=== PATIENT | female | born 1930 | race Caucasian/White ===

== ENCOUNTER → 2017-09-18 | Outpatient (CLI) | payer MEDICARE ==
[~2017-09-18] MED LIST: ALEVE220 MG PO; ASPIRIN81 M2 PO; CALTRATE 600600 MG PO; FISH OIL300 MG PO; HYDROCHLOROTHIA25 MG PO; NORVASC5 MG PO
== END | disposition home or self-care (01) ==
LOC: CDC 09:20
DX: Z01.810 Encounter for preprocedural cardiovascular examination (principal); R94.31 Abnormal electrocardiogram [ECG] [EKG]
CPT/HCPCS: 93000